=== PATIENT | female | born 1965 | race African-American/Black ===

== ENCOUNTER 2021-02-16 10:46 | Emergency (ER) | payer MEDICAID, OTHER ==
[~2021-02-16] VITALS: Ht 167.6 cm; Wt 75.0 kg
[2021-02-16 10:50] VITALS: BP 135/79
== END 2021-02-16 13:12 | disposition left against medical advice (07) ==
LOC: ER 10:46
DX: Z53.21 Procedure and treatment not carried out due to patient leaving prior to being seen by health care provider (principal)